=== PATIENT | female | born 1995 | race Two or more races ===

== ENCOUNTER 2021-07-14 18:01 | Emergency (ER) | payer SELFPAY ==
[~2021-07-14 18:01] MED LIST: Iopamidol 370 76% 100 ML VIAL ONE
[2021-07-14 19:06] LABS: #Lymphocytes 0.6 thou/uL (1.20-3.40); #Monocytes 0.3 thou/uL (0.11-0.59); #Neutrophils 8.3 thou/uL (1.40-6.50); %Eosinophils 0.2 % (0.0-10.0); %Lymphocytes 6.7 % (21.0-51.0); %Neutrophils 90.1 % (42.0-75.0); Hemoglobin 14.4 g/dL (12.0-16.0); Mean Corpuscular HGB CONC 33.6 g/dL (32.0-36.0); Mean Corpuscular Hemoglobin 30.3 pg (27.0-31.0); Mean Corpuscular Volume 90.2 fL (78.0-98.0); Mean Platelet Volume 7.6 fL (7.4-10.4); Platelet Count 204 thou/uL (130-400); RBC Distribution Width 12.4 % (11.5-14.5); Red Blood Cell (RBC) Count 4.74 mill/uL (4.20-5.40); White Blood Cell (WBC) Count 9.3 thou/uL (4.8-10.8)
[2021-07-14 19:15] LABS: BHCG - Serum Negative (NEGATIVE); Pregs Control Background? CLEAR/WHITE (CLR/WHITE); Pregs Control Bar Appear? YES (CONTROL BAR)
[2021-07-14 19:22] LABS: ALT (SGPT) 17 U/L (8-55); AST (SGOT) 21 U/L (5-34); Albumin 4.2 g/dL (3.5-5.0); Alkaline Phosphatase 66 U/L (40-110); Anion Gap 14 mmol/L (10-20); BUN (Urea Nitrogen) 7 mg/dL (7.0-18.7); Bilirubin, Total 0.4 mg/dL (0.2-1.2); Calc. Creatinine Clearance 0 mL/min (70-130); Carbon Dioxide 22 mmol/L (22-29); Chloride 101 mmol/L (98-107); Globulin 3.5 g/dL (2.4-3.5); Glucose 106 mg/dL (70-105); Lipase 6 U/L (8-78); Magnesium 1.6 mg/dL (1.6-2.6); Protein, Total 7.7 g/dL (6.0-8.3); Sodium 133 mmol/L (136-145)
[2021-07-14] MEDS ORDERED: Ondansetron PF 4 MG/2 ML Vial ONE (19:37)
[2021-07-14] MEDS ORDERED: Fentanyl 100 MCG/2 ML VIAL ONE (19:37)
[2021-07-14] MEDS ORDERED: Dicyclomine 20 MG TAB ONE (21:36)
== END 2021-07-14 22:20 | disposition home or self-care (01) ==
LOC: ERS 18:01
DX: K92.1 Melena (principal); R19.7 Diarrhea, unspecified
CPT/HCPCS: 36415; 74177; 80053; 83690; 83735; 84703; 85025; 87045; 87046; 87427; 87449; 96374; 96375; J2405; J3010; Q9967

== ENCOUNTER 2023-04-06 12:23 | Outpatient (CLI) | payer OTHER, SELFPAY | END 2023-04-06 12:24 | disposition home or self-care (01) | LOC: SCSRAD 12:23 | PROVIDERS: ATTEND Nurse Practitioner Family | DX: R76.11 Nonspecific reaction to tuberculin skin test without active tuberculosis (principal) | CPT/HCPCS: 71046 ==